=== PATIENT | male | born 1990 | race Two or more races ===

== ENCOUNTER 2021-10-16 17:09 | Emergency (ER) | payer OTHER ==
[~2021-10-16] VITALS: Ht 182.9 cm; Wt 95.3 kg
[2021-10-16 19:25] VITALS: BP 131/84
[2021-10-16] MEDS ORDERED: TDAP [DIPH/PERTUSSIS/TET] 0.5 ML VIAL IM ONE ×2 (19:30→19:34)
[2021-10-16] MEDS ORDERED: BACITRACIN ZINC OINT PACKET 1 EA PACKET TP ONE ×2 (19:30→19:33)
[2021-10-16] MEDS ORDERED: AMOX-430 PO (19:48)
--- NOTE | 2021-10-16 20:14 | NUR ---
Patient discharged to home in stable condition. Written and verbal after care instructions given. Patient verbalizes understanding of instruction. Pt ambulatory with a steady gait
== END 2021-10-16 20:15 | disposition home or self-care (01) ==
LOC: ER 17:15
DX: S80.812A Abrasion, left lower leg, initial encounter (principal); Z60.2 Problems related to living alone; W54.0XXA Bitten by dog, initial encounter; Y93.89 Activity, other specified; Y92.89 Other specified places as the place of occurrence of the external cause; Y99.8 Other external cause status
CPT/HCPCS: 90715